=== PATIENT | female | born 1935 | race Caucasian/White ===

== ENCOUNTER 2019-02-08 17:24 | Inpatient (IN) | payer BC ==
[~2019-02-08] VITALS: Ht 157.5 cm; Wt 77.0 kg
[2019-02-08 18:23] LABS: Basophils # (auto) 0 uL; Basophils % (auto) 0.2 % (0.0-2.0); Eosinophils # (auto) 0 uL; Eosinophils % (auto) 0.3 % (0.0-7.0); Hematocrit 38.1 % (36.0-46.0); Hemoglobin 12.4 g/dL (12.2-16.2); Lymphocytes # (auto) 1.2 uL; Lymphocytes % (auto) 7.7 % (10.0-50.0); Mean Corpuscular Hemoglobin 27.6 pg (28.0-32.0); Mean Corpuscular Hgb Conc. 32.6 g/dL (32.0-36.0); Mean Corpuscular Volume 84.8 fL (80.0-100.0); Monocytes # (auto) 0.6 uL; Monocytes % (auto) 3.8 % (0.0-12.0); Neutrophils # (auto) 14.3 uL; Platelet Count (auto) 322 10^3/uL (140-450); Red Blood Cells 4.49 10^6/uL (4.0-5.20); White Blood Cell 16.2 10^3/uL (4.4-10.8)
[2019-02-08 18:43] LABS: Albumin 3.7 g/dL (3.4-5.0); Calcium 8.6 mg/dL (8.5-10.1)
[2019-02-08 18:48] LABS: BUN/Creatinine Ratio 23.5; Bilirubin, Total 0.4 mg/dL (0.2-1.0); Total Protein 7.7 g/dL (6.4-8.2)
[2019-02-08] MEDS ORDERED: SODIUM CHLORIDE 0.9% 1,000 ML IVB ONE (19:16)
[2019-02-08] MEDS ORDERED: cefTRIAXone 1GM/50ML D5W 50 ML IV ONE (19:30)
[2019-02-08] MEDS ORDERED: metroNIDAZOLE 500MG/100ML 100 ML IV ONE (19:30)
[2019-02-08 19:48] LABS: Magnesium 1.9 mg/dL (1.6-2.6)
[2019-02-08 20:01] LABS: INR 0.94 (0.9-1.15); Partial Thromboplastin Time 23.5 sec (23.64-32.05)
[2019-02-08 20:51] LABS: Lactic Acid w/Reflex 2.7 mmol/L (0.4-2.0)
[2019-02-08] MEDS ORDERED: MORPHINE SULF INJ 2 MG/ML SYRINGE 1ML IV ONE (21:00)
[2019-02-08] MEDS ORDERED: ONDANSETRON HCL 4 MG/2 ML VIAL IV ONE (21:00)
[2019-02-08] MEDS ORDERED: SODIUM CHLORIDE 0.9% 1,000 ML IV ONE (21:15)
[2019-02-08] MEDS ORDERED: BENZOCAINE (DENTAL) 20 % SPRAY 60ML MT ONE ×2 (21:39→21:45)
[2019-02-08] MEDS ORDERED: PROMETHAZINE HCL 25 MG/ML 1ML IV ONE (22:00)
[2019-02-08] MEDS ORDERED: PANTOPRAZOLE 40 MG/10 ML VIAL INJ IV ONE (22:45)
[2019-02-08] MEDS ORDERED: DEXTROSE (50%) 50ML SYRG IV PRN (22:45)
[2019-02-08] MEDS ORDERED: MORPHINE SULF INJ 2 MG/ML SYRINGE 1ML IV PRN ×2 (22:45)
[2019-02-08] MEDS ORDERED: NITROGLYCERIN 0.4 MG SL TAB SL PRN (22:45)
[2019-02-09] MEDS: SODIUM CHLORIDE 0.9% 1,000 ML IV SCH ×3 (00:11→18:45)
[2019-02-09] MEDS: ACCU-CHEK COMFORT CURVE STRIP VI SCH ×4 (00:11→18:00)
[2019-02-09 05:13] LABS: Basophils # (auto) 0 uL; Basophils % (auto) 0.1 % (0.0-2.0); Eosinophils # (auto) 0 uL; Hematocrit 34.7 % (36.0-46.0); Hemoglobin 11.4 g/dL (12.2-16.2); Lymphocytes # (auto) 1.1 uL; Lymphocytes % (auto) 6.2 % (10.0-50.0); Mean Corpuscular Hgb Conc. 32.9 g/dL (32.0-36.0); Mean Corpuscular Volume 84.9 fL (80.0-100.0); Monocytes # (auto) 0.8 uL; Monocytes % (auto) 4.2 % (0.0-12.0); Neutrophils # (auto) 16.6 uL; Neutrophils % (auto) 89.5 % (37.0-80.0); Platelet Count (auto) 266 10^3/uL (140-450); Red Blood Cells 4.09 10^6/uL (4.0-5.20); White Blood Cell 18.6 10^3/uL (4.4-10.8)
[2019-02-09 05:32] LABS: Calcium 7.9 mg/dL (8.5-10.1); Potassium 3.6 mmol/L (3.5-5.1)
[2019-02-09 05:34] LABS: BUN/Creatinine Ratio 24.2
[2019-02-09] MEDS ORDERED: metroNIDAZOLE 500MG/100ML 100 ML IV SCH (06:00)
[2019-02-09] MEDS: InsuLIN REG 1unit/0.01ml Soln (100units/ml) SC SCH ×4 (06:00→18:00)
[2019-02-09] MEDS: ONDANSETRON HCL 4 MG/2 ML VIAL IV PRN (08:53)
[2019-02-09] MEDS ORDERED: cefTRIAXone 1GM/50ML D5W 50 ML IV SCH (09:00)
[2019-02-09] MEDS ORDERED: HYDROmorphone HCL 2 MG/ML VL IV PRN ×2 (11:15→12:15)
[2019-02-09] MEDS: PANTOPRAZOLE 40 MG/10 ML VIAL INJ IV SCH (11:22)
[2019-02-09] MEDS ORDERED: MORPHINE SULF INJ 2 MG/ML SYRINGE 1ML IV PRN (11:45)
[2019-02-09] MEDS ORDERED: ACCU-CHEK COMFORT CURVE STRIP VI ONE (12:15)
[2019-02-09] MEDS ORDERED: ONDANSETRON HCL 4 MG/2 ML VIAL IV PRN (12:15)
[2019-02-09] MEDS ORDERED: NALOXONE HCL 0.4 MG/ML VIAL IV PRN (12:15)
[2019-02-09] MEDS ORDERED: ePHEDrine SULFATE 50 MG/ML AMP IV PRN (12:15)
[2019-02-09] MEDS ORDERED: LIDOCAINE 1% (LOCAL ANESTH.) PF 5ml SDV ONE (12:16)
[2019-02-09] MEDS ORDERED: SUCCINYLCHOLINE CHLORIDE 20 MG/ML 10ML VIAL IV ONE (12:16)
[2019-02-09] MEDS ORDERED: MIDAZOLAM HCL 1MG/1ML-2 ML VIAL ONE (12:19)
[2019-02-09] MEDS ORDERED: ROCURONIUM 10MG/ML 10ML VIAL IV ONE (12:20)
[2019-02-09] MEDS ORDERED: ETOMIDATE (2MG/ML) 20ML VIAL IV ONE (12:20)
[2019-02-09] MEDS ORDERED: fentaNYL CITRATE 100 MCG/2 ML VL ONE (12:53)
[2019-02-09] MEDS ORDERED: POVIDONE IODINE 5% TOPICAL CREAM TOP ONE (13:28)
[2019-02-09] MEDS ORDERED: GLYCOPYRROLATE 0.2 MG/ML 1ML VIAL ONE (13:37)
[2019-02-09] MEDS ORDERED: NEOSTIGMINE 1 MG/ML INJ (10mg/10ML VIAL) ONE (13:37)
[2019-02-09] MEDS: PIPERACILLIN-TAZOB 3.375GM 100 ML IV SCH ×2 (14:00→22:09)
[2019-02-09] MEDS: HYDROmorphone HCL 2 MG/ML VL IV PRN ×3 (14:18→16:23)
[2019-02-09] MEDS ORDERED: KETOROLAC TROMETH 30 MG/ML 1ML VIAL ONE (14:21)
[2019-02-09 19:30] VITALS: BP 127/60
--- NOTE | 2019-02-09 19:30 | NUR ---
received pt from pacu nurse poc reviewed
--- NOTE | 2019-02-09 19:40 | NUR ---
pt Alert times four, oriented to rm 231, connected to 3l n/c, resp even and unlabored, denies pain, ngt to right nare, connected to lcs, no drainage at this time, abd binder in place dressing dry and intact, no bs at this time, right and left dillon intact to suction, f/c patent, positioned with hob up, all questions and concerns addressed, scd's applied, will educate with Is, splinting abdomen when coughing and post op instructions.
--- NOTE | 2019-02-09 20:46 | NUR ---
pt called updated on room location and to bring meds in am , pt stated that she has a h/o mrsa a few years ago from a wound in her right leg, will send swab
--- NOTE | 2019-02-09 21:36 | NUR ---
positioned with hob up, resting with eyes closed
[2019-02-09] MEDS ORDERED: LOSA25TA38 PO (22:43)
[2019-02-09] MEDS ORDERED: AMLO5TAB15 PO (22:43)
[2019-02-09] MEDS ORDERED: GLIP5TAB12 PO (22:45)
[2019-02-09] MEDS ORDERED: ATOR10TA52 PO (22:45)
[2019-02-09] MEDS ORDERED: ASPI-404 PO (22:46)
[2019-02-09] MEDS ORDERED: ASCO500T11 PO (22:46)
[2019-02-09 22:55] LABS: Urine Bacteria FEW /hpf (None Seen); Urine Blood 2+ /uL (Negative); Urine Hyaline Cast MANY /lpf (0 - 2); Urine Mucus FEW (None Seen); Urine Specific Gravity 1.022 (1.001-1.035); Urine WBC 11 /hpf (0 - 5)
--- NOTE | 2019-02-09 23:05 | NUR ---
received call from lab pt has positive blood cultures gram neg rods, hospitalist paged
[2019-02-10] VITALS (7 sets, daily range): BP systolic 125–142; BP diastolic 47–79
--- NOTE | 2019-02-10 00:10 | NUR ---
hospitalist paged for orders, pts temp 101.0 ax, cooling measures initiated.
[2019-02-10] MEDS: ACCU-CHEK COMFORT CURVE STRIP VI SCH ×5 (00:38→23:32)
[2019-02-10] MEDS ORDERED: VANCOMYCIN PER PHARMACY 0 MG IV SCH (01:15)
[2019-02-10] MEDS ORDERED: ACETAMINOPHEN 650 MG RECT SUPP PR PRN (01:15)
--- NOTE | 2019-02-10 01:43 | NUR ---
rectal supp given for temp 101.2, cooling measures continue
[2019-02-10] MEDS ORDERED: VANCOMYCIN 1GM/250ML 250 ML IV SCH (02:00)
--- NOTE | 2019-02-10 02:00 | NUR ---
shukri started as ordered, pt is to transfer to icu
--- NOTE | 2019-02-10 02:10 | NUR ---
not able to give report nurse on break.
--- NOTE | 2019-02-10 02:53 | NUR ---
report given to icu nurse poc reviewed, discussed with pt that she will be transferred to icu, pt verbalized understanding, pts property, dentures, errings clothing transferred with pt
--- NOTE | 2019-02-10 03:12 | NUR ---
pts spouse not notified of pts change of room
[2019-02-10] MEDS: SODIUM CHLORIDE 0.9% 1,000 ML IV SCH ×2 (04:45→14:45)
[2019-02-10] MEDS: InsuLIN REG 1unit/0.01ml Soln (100units/ml) SC SCH ×5 (06:00→23:33)
[2019-02-10] MEDS: PIPERACILLIN-TAZOB 3.375GM 100 ML IV SCH ×3 (06:16→21:32)
[2019-02-10 07:11] LABS: Basophils # (auto) 0.1 uL; Basophils % (auto) 0.5 % (0.0-2.0); Eosinophils # (auto) 0.1 uL; Eosinophils % (auto) 0.6 % (0.0-7.0); Hematocrit 34.5 % (36.0-46.0); Hemoglobin 11.4 g/dL (12.2-16.2); Lymphocytes # (auto) 1.5 uL; Lymphocytes % (auto) 10.4 % (10.0-50.0); Mean Corpuscular Hemoglobin 28.3 pg (28.0-32.0); Mean Corpuscular Hgb Conc. 32.9 g/dL (32.0-36.0); Mean Corpuscular Volume 86.2 fL (80.0-100.0); Monocytes # (auto) 0.5 uL; Monocytes % (auto) 3.4 % (0.0-12.0); Neutrophils # (auto) 12.3 uL; Neutrophils % (auto) 85.1 % (37.0-80.0); Platelet Count (auto) 232 10^3/uL (140-450); Red Blood Cells 4.01 10^6/uL (4.0-5.20); Red Cell Distribution Width 14.6 % (11.8-14.3); White Blood Cell 14.4 10^3/uL (4.4-10.8)
[2019-02-10 07:27] LABS: Albumin 2.6 g/dL (3.4-5.0); Calcium 7.8 mg/dL (8.5-10.1); Potassium 3.4 mmol/L (3.5-5.1)
[2019-02-10 07:31] LABS: BUN/Creatinine Ratio 25.8; Bilirubin, Total 0.6 mg/dL (0.2-1.0); Total Protein 6.3 g/dL (6.4-8.2)
--- NOTE | 2019-02-10 09:09 | NUR ---
DR LI'S PA AT BEDSIDE DISCUSSED PLAN OF CARE WITH PATIENT AND PATIENTS DAUGHTER
--- NOTE | 2019-02-10 09:26 | NUR ---
SPOKE WITH DR LI'S PA RECEIVED ORDERS TO ALLOW PATIENT TO HAVE ICE CHIPS
[2019-02-10] MEDS: PANTOPRAZOLE 40 MG/10 ML VIAL INJ IV SCH (10:00)
--- NOTE | 2019-02-10 10:33 | NUR ---
DR EL AT BEDSIDE DISCUSSED PLAN OF CARE WITH PATIENT AND PATIENTS FAMILY (DAUGHTER AND ) NEW ORDERS RECEIVED
[2019-02-10] MEDS: POTASSIUM CHL 20MEQ/100ML 100 ML IV SCH ×2 (10:51→13:13)
--- NOTE | 2019-02-10 11:32 | NUR ---
BED ASSIGNMENT GIVEN, ROOM 205- REPORT GIVEN TO EDUARD PATIENT STABLE FOR TRANSFER
--- NOTE | 2019-02-10 11:50 | NUR ---
PATIENTS DAUGHTER AND GRANDDAUGHTER AT BEDSIDE UPDATED ON CURRENT STATUS AND PLAN OF CARE.
--- NOTE | 2019-02-10 12:06 | NUR ---
PATIENT TRANSFERRED TO FLOOR BED, CONNECTED TO PORTABLE TELE BOX AND OXYGEN. TRANSPORTED TO NEW ROOM WITH EVENT MARKETING REPRESENTATIVE AND TECH, WITH ALL BELONGINGS. PATIENTS VITALS STABLE AT TIME OF TRANSFER
--- NOTE | 2019-02-10 12:50 | NUR ---
Patient DENNISE status Received patient from ICU, patient alert and oriented x4 on 2L NC. No c/o pain. No s/s of distress/SOB noted/stated. Abdominal incisions are clean dry and intact, with the exception of the right dressing showing dried up blood. TIESHA drains intact and draining serosanguineous fluid. Abdominal binder in place. Patient has an NG tube to R.nare. NG Tube set at LIS. A total of 350ml of greenish fluid in canister. Bed at lowest locked position and call light within reach.Family at bedside and call light within reach.
--- NOTE | 2019-02-10 14:00 | NUR ---
Assessment Pt is an 83 yr old female, alert and oriented. Earlier in the day, pt was in ICU but she had recently been downgraded and is in Rm 205. Prior to admit, pt lived with partner, Kurt, who is here emergency contact at [phone]. Prior to admit, pt was ambulatory, and independent with ADL's, cooking and cleaning. . Pt does not own any DME. Pt's Primary DrOlga is at [facility]. Pt stated that she has an advanced directive but not here at the hospital. SW encouraged pt to bring a copy in, when able. Pt stated that her partner Kurt will be able to transport home upon d/c. Pt stated that she will feel safe to go home upon d/c. No needs or concerns expressed from pt at this time. Addendum: 02/10/19 at 1406 by MARK SOTO SS Amended: Links added.
--- NOTE | 2019-02-10 18:32 | NUR ---
CLOSING SHIFT NOTE Patient is AOx4, laying in bed with no SOB, pain or distress noted. Patients bed is in lowest position and locked. Patient is on 2L of O2 via NC, she is on LOW INTERMITTENT SUCTION, drained total output of 650ml of green gastric content. Both TIESHA drains are intact and total out put of 75ml of serous sanguineous fluid, secured with abdominal binder. Will endorse care to maintenance supervisor 2nd shift nurse. Signed: 02/10/19 at 1840 by SHARRON CALDERON <Co-Signature Required> Co-Signed: 02/10/19 at 0 by Suki Loyola RN
--- NOTE | 2019-02-10 19:00 | NUR ---
Opening Shift Note Assumed care of patient, awake and alert. No S/S of distress/SOB or pain. Instructed on POC and to call for assist PRN, will continue to monitor for changes Q1hr and PRN.
[2019-02-11] MEDS: SODIUM CHLORIDE 0.9% 1,000 ML IV SCH ×3 (00:45→20:32)
[2019-02-11] MEDS ORDERED: VANCOMYCIN 1GM/250ML 250 ML IV SCH (02:00)
[2019-02-11 05:01] VITALS: BP 151/74
[2019-02-11 05:10] LABS: Basophils # (auto) 0.1 uL; Basophils % (auto) 0.4 % (0.0-2.0); Eosinophils # (auto) 0.2 uL; Eosinophils % (auto) 1.4 % (0.0-7.0); Hematocrit 35.7 % (36.0-46.0); Hemoglobin 11.8 g/dL (12.2-16.2); Lymphocytes # (auto) 1.3 uL; Lymphocytes % (auto) 8.9 % (10.0-50.0); Mean Corpuscular Hgb Conc. 33.1 g/dL (32.0-36.0); Mean Corpuscular Volume 84.8 fL (80.0-100.0); Monocytes # (auto) 0.4 uL; Monocytes % (auto) 3.1 % (0.0-12.0); Neutrophils # (auto) 12.5 uL; Neutrophils % (auto) 86.2 % (37.0-80.0); Platelet Count (auto) 249 10^3/uL (140-450); Red Blood Cells 4.21 10^6/uL (4.0-5.20); Red Cell Distribution Width 14.4 % (11.8-14.3); White Blood Cell 14.5 10^3/uL (4.4-10.8)
[2019-02-11 05:28] LABS: Calcium 8.6 mg/dL (8.5-10.1); Potassium 3.5 mmol/L (3.5-5.1)
[2019-02-11 05:34] LABS: Albumin 2.5 g/dL (3.4-5.0); Bilirubin, Total 0.6 mg/dL (0.2-1.0); Magnesium 2.4 mg/dL (1.6-2.6); Phosphorus 1.7 mg/dL (2.5-4.90); Total Protein 6.6 g/dL (6.4-8.2)
[2019-02-11] MEDS: ACCU-CHEK COMFORT CURVE STRIP VI SCH ×4 (05:34→23:51)
[2019-02-11] MEDS: InsuLIN REG 1unit/0.01ml Soln (100units/ml) SC SCH ×4 (05:34→23:51)
[2019-02-11] MEDS: PIPERACILLIN-TAZOB 3.375GM 100 ML IV SCH ×3 (05:34→21:31)
[2019-02-11 05:42] LABS: BUN/Creatinine Ratio 28.2
--- NOTE | 2019-02-11 06:20 | NUR ---
TIESHA drains drained of 200mL of fluid.
--- NOTE | 2019-02-11 06:21 | NUR ---
NG tube connected to suction noted to have 450mL of gastric fluid in container during warehouse worker 2nd shift.
--- NOTE | 2019-02-11 08:00 | NUR ---
Opening Shift Note Assumed care of patient, awake and alert. No S/S of SOB or pain stated. Patient is complaining of feeling hungry. Bed at lowest locked position and call light within reach. Instructed on POC and to call for assist PRN, will continue to monitor for changes Q1hr and PRN.
[2019-02-11 08:01] VITALS: BP 145/71
--- NOTE | 2019-02-11 08:15 | NUR ---
Patient c/o Nausea and feeling hungry. WPatient is demanding food and is requesting to talk to Dr. Hill. Will medicate as prescribed by .
[2019-02-11] MEDS: ONDANSETRON HCL 4 MG/2 ML VIAL IV PRN (08:28)
--- NOTE | 2019-02-11 09:02 | NUR ---
IV removal Patient's IV on Right AC is leaking. No c/o pain stated, no swelling or no redness noted. IV DC'd with clean sterile technique, catheter fully intact. Pressure dressing applied to site. Patient tolerated well.
--- NOTE | 2019-02-11 09:03 | NUR ---
Left a message for Physical therapy, patient needs at walker to assist her with ambulation. Awaiting call back.
--- NOTE | 2019-02-11 09:11 | NUR ---
Left message with Dr. Anum Hoffman, Awaiting call back.
[2019-02-11] MEDS ORDERED: POTASSIUM PHOSPHATE 22 MEQ in SODIUM CHL 0.9% 100 ML IV ONE (09:30)
[2019-02-11] MEDS: PANTOPRAZOLE 40 MG/10 ML VIAL INJ IV SCH (10:44)
[2019-02-11] MEDS ORDERED: LOSA-39 PO (10:51)
[2019-02-11] MEDS ORDERED: ATO40T PO (10:52)
--- NOTE | 2019-02-11 11:00 | NUR ---
Patient is ambulating with Eyad ALVAREZ
--- NOTE | 2019-02-11 11:58 | NUR ---
NUTRITION ASSESSMENT NOTES Please refer to link notes of nutrition screen form filed under the intervention section of the plan of care for further details. Est. Needs: 1550 kcal to 1950 kcal (20-25 kcal/kgBW), 63 gms to 77 gms pro (0.8-1.0 gms/kgBW). Will continue to monitor pertinent labs and reassess nutrient need prn Thank you. Addendum: 02/11/19 at [address] Amended: Links added.
[2019-02-11 12:10] VITALS: BP 146/60
--- NOTE | 2019-02-11 14:20 | NUR ---
Patient had a well formed bowel movement.
[2019-02-11 16:28] VITALS: BP 152/67
--- NOTE | 2019-02-11 16:31 | NUR ---
ELEVATED BLOOD PRESSURE LEFT MESSAGE FOR DR. EL, PATIENTS BP IS 152/67 HR 77
--- NOTE | 2019-02-11 18:43 | NUR ---
Collected 150mls of serosanguineous fluid from r/l TIESHA drains. Patient tolerated well.
--- NOTE | 2019-02-11 18:46 | NUR ---
NG Tube Collected a total of 250mls of greenish fluid from NG Tube during shift.
[2019-02-11] MEDS: hydrALAZINE HCL 20 MG/ML VL IV PRN (20:48)
[2019-02-11 22:00] VITALS: BP 165/77
[2019-02-12] MEDS: hydrALAZINE HCL 20 MG/ML VL IV PRN (04:05)
[2019-02-12 05:00] VITALS: BP 160/67
[2019-02-12 05:25] LABS: Basophils # (auto) 0.1 uL; Basophils % (auto) 0.4 % (0.0-2.0); Eosinophils # (auto) 0.2 uL; Eosinophils % (auto) 1.7 % (0.0-7.0); Hematocrit 37.3 % (36.0-46.0); Hemoglobin 12.2 g/dL (12.2-16.2); Lymphocytes # (auto) 1.2 uL; Lymphocytes % (auto) 8.9 % (10.0-50.0); Mean Corpuscular Hemoglobin 27.8 pg (28.0-32.0); Mean Corpuscular Hgb Conc. 32.7 g/dL (32.0-36.0); Mean Corpuscular Volume 85.2 fL (80.0-100.0); Monocytes # (auto) 0.6 uL; Monocytes % (auto) 4.5 % (0.0-12.0); Neutrophils # (auto) 11.7 uL; Neutrophils % (auto) 84.5 % (37.0-80.0); Platelet Count (auto) 291 10^3/uL (140-450); Red Blood Cells 4.38 10^6/uL (4.0-5.20); White Blood Cell 13.9 10^3/uL (4.4-10.8)
[2019-02-12] MEDS: ACCU-CHEK COMFORT CURVE STRIP VI SCH ×3 (05:32→16:58)
[2019-02-12] MEDS: PIPERACILLIN-TAZOB 3.375GM 100 ML IV SCH ×3 (05:32→21:34)
[2019-02-12] MEDS: InsuLIN REG 1unit/0.01ml Soln (100units/ml) SC SCH ×3 (05:33→16:58)
[2019-02-12 05:48] LABS: BUN/Creatinine Ratio 29.6; Calcium 8.7 mg/dL (8.5-10.1); Magnesium 2.3 mg/dL (1.6-2.6); Potassium 3.8 mmol/L (3.5-5.1)
[2019-02-12] MEDS: ONDANSETRON HCL 4 MG/2 ML VIAL IV PRN (06:15)
[2019-02-12] MEDS: SODIUM CHLORIDE 0.9% 1,000 ML IV SCH (06:15)
--- NOTE | 2019-02-12 06:16 | NUR ---
NG tube connected to suction noted to have 400mL of gastric fluid in container during administrative assistant receptionist.
--- NOTE | 2019-02-12 06:16 | NUR ---
TIESHA drains drained of 150mL of fluid.
--- NOTE | 2019-02-12 07:45 | NUR ---
Opening Note Received report from lieutenant shift supervisor RN. Patient is awake, alert and oriented x4. Patient is on 2L NC, denies shortness of breath. Patient has an NG Tube on low intermittent suction, draining dark green fluid. Patient has two TIESHA drains. Patient has abdominal incision, open to air. Patient denies pain at this time. Reviewed plan of care with patient, patient verbalized understanding. Bed in low and locked position, call light within reach. Will continue to monitor Q1 hour and PRN.
[2019-02-12 08:10] VITALS: BP 141/69
--- NOTE | 2019-02-12 08:52 | NUR ---
Dr. Orozco at bedside Updating patient on plan of care. New orders received. Instructed to clamp NG tube and monitor for 6 hours, if no nausea and vomiting ok to remove NG tube, remove Navarro catheter. Will implement new orders. Will continue to monitor Q1 hour and PRN.
--- NOTE | 2019-02-12 09:15 | NUR ---
NG Tube clamped Patient instructed to call for any complaints of nausea or vomiting. Will continue to monitor Q1 hour and PRN.
[2019-02-12] MEDS: PANTOPRAZOLE 40 MG/10 ML VIAL INJ IV SCH (10:00)
--- NOTE | 2019-02-12 10:06 | NUR ---
PT at bedside
[2019-02-12 12:01] VITALS: BP 135/65
[2019-02-12] MEDS: SOD CHL 0.45% 1,000 ML IV SCH ×2 (12:17→19:28)
--- NOTE | 2019-02-12 15:00 | NUR ---
Navarro catheter Removed Catheter removed per MD orders. Patient instructed to call when she needs to void. Will continue to monitor Q1 hour and PRN.
--- NOTE | 2019-02-12 15:30 | NUR ---
NG Tube removed Patient tolerated NG tube being clamped for 6 hours. Removed NG Tube, patient tolerated well. Diet advanced to clear liquids. Will continue to monitor Q1 hour and PRN.
[2019-02-12 16:26] VITALS: BP 147/70
--- NOTE | 2019-02-12 16:50 | NUR ---
Bedside Commode Patient assisted to bedside commode. Patient voided, no bowel movement. Patient denies pain or discomfort at this time. Patient assisted back to bed. Will continue to monitor Q1 hour and PRN.
--- NOTE | 2019-02-12 18:34 | NUR ---
Diet Patient tolerated clear liquid diet. No complaints of nausea or vomiting. Will continue to monitor Q1 hour and PRN.
--- NOTE | 2019-02-12 18:51 | NUR ---
150mls emptied from TIESHA drains sanguinous fluid emptied
--- NOTE | 2019-02-12 19:30 | NUR ---
OPENING NOTE REPORT RECEIVED FROM DAY SHIFT RN. PATIENT IS A/OX4 RESTING IN BED. PHYSICAL ASSESSMENT DONE-SEE INTERVENTIONS. PATIENT HAS JONATHAN TO MEDIAL ABDOMEN, INTACT AND WELL APPROXIMATED. TIESHA DRAINS TO LEFT AND RIGHT LOWER ABDOMEN. PATIENT ABLE TO TURN/REPOSITION SELF. POC FOR TONIGHT DISCUSSED, ALL QUESTIONS ANSWERED. WILL MONITOR Q1H PRN THROUGHOUT SHIFT. CALL LIGHT WITHIN REACH. FALL PRECAUTIONS IN PLACE.
[2019-02-12 21:11] VITALS: BP 140/67
[2019-02-13 04:28] VITALS: BP 139/61
[2019-02-13] MEDS: SOD CHL 0.45% 1,000 ML IV SCH ×2 (05:15→15:18)
[2019-02-13 05:23] LABS: Basophils # (auto) 0 uL; Basophils % (auto) 0.3 % (0.0-2.0); Eosinophils # (auto) 0.4 uL; Eosinophils % (auto) 3.3 % (0.0-7.0); Hematocrit 32.5 % (36.0-46.0); Hemoglobin 10.9 g/dL (12.2-16.2); Lymphocytes # (auto) 1.7 uL; Lymphocytes % (auto) 15.5 % (10.0-50.0); Mean Corpuscular Hemoglobin 28.6 pg (28.0-32.0); Mean Corpuscular Hgb Conc. 33.6 g/dL (32.0-36.0); Mean Corpuscular Volume 85.1 fL (80.0-100.0); Monocytes % (auto) 9.3 % (0.0-12.0); Neutrophils # (auto) 7.7 uL; Neutrophils % (auto) 71.6 % (37.0-80.0); Platelet Count (auto) 276 10^3/uL (140-450); Red Blood Cells 3.82 10^6/uL (4.0-5.20); White Blood Cell 10.7 10^3/uL (4.4-10.8)
[2019-02-13 05:27] LABS: BUN/Creatinine Ratio 29.3; Calcium 8.2 mg/dL (8.5-10.1); Potassium 3.7 mmol/L (3.5-5.1)
[2019-02-13] MEDS: ACCU-CHEK COMFORT CURVE STRIP VI SCH ×4 (05:43→17:52)
[2019-02-13] MEDS: PIPERACILLIN-TAZOB 3.375GM 100 ML IV SCH ×3 (05:43→22:59)
[2019-02-13] MEDS: InsuLIN REG 1unit/0.01ml Soln (100units/ml) SC SCH ×4 (05:46→17:52)
--- NOTE | 2019-02-13 06:42 | NUR ---
TIESHA OUTPUTS LEFT TIESHA:50ML RIGHT TIESHA:50ML TOTAL OUTPUT FROM BOTH TIESHA DRAINS FOR SHIFT: 100ML OF SEROSANGUINEOUS FLUID
--- NOTE | 2019-02-13 07:04 | NUR ---
CLOSING REPORT ENDORSED TO DAYSHIFT RN PATIENT IS SLEEPING. NO S/S OF DISTRESS NOTED. FALL PRECAUTIONS IN PLACE, CALL LIGHT WITHIN REACH
--- NOTE | 2019-02-13 07:40 | NUR ---
Opening Note Received report from shift coordinator RN. Patient is awake, alert and oriented x4. Patient is on 2L NC, denies shortness of breath. Tube on low Patient has two TIESHA drains. Patient has abdominal incision, open to air. Patient denies pain at this time. Reviewed plan of care with patient, patient verbalized understanding. Bed in low and locked position, call light within reach. Will continue to monitor Q1 hour and PRN.
--- NOTE | 2019-02-13 08:40 | NUR ---
Bowel Movement Patient had bowel movement in beside commode, dark colored, loose stool. Patient cleaned and assisted back to bed. Will continue to monitor Q1 hour and PRN.
--- NOTE | 2019-02-13 08:58 | NUR ---
Dr. Hoffman at bedside Updating patient on plan of care. Patient is to stay on clear liquids today. Will continue to monitor Q1 hour and PRN.
[2019-02-13 09:00] VITALS: BP 140/68
--- NOTE | 2019-02-13 09:05 | NUR ---
Dr. Orozco at bedside Updating patient on plan of care. Patient is a possible discharge tomorrow if cleared by Dr. Hoffman. New prescriptions placed in patients chart. Will continue to monitor Q1 hour and PRN.
--- NOTE | 2019-02-13 09:30 | NUR ---
PT at bedside Patient ambulated in hallway with PT. Patient assisted to chair and instructed to call when ready to get back into bed. Will continue to monitor Q1 hour and PRN.
[2019-02-13] MEDS: PANTOPRAZOLE 40 MG/10 ML VIAL INJ IV SCH (10:10)
[2019-02-13 12:52] VITALS: BP 166/66
--- NOTE | 2019-02-13 14:32 | NUR ---
Nutrition Follow-up Notes Wt.: 76.4 kg as of yesterday Pt's asleep, no immediate family member at bedside during rounds this morning. Pt's s/p explor lap appy (02/09/19), no signs of distress noted earlier, currently on Clear Liquid diet with good PO intake aeb 80% ave. consumed meals (x3) since yesterday. Est. Needs: 1550 kcal to 1950 kcal (20-25 kcal/kgBW), 63 gms to 77 gms pro (0.8-1.0 gms/kgBW). Will continue to monitor pertinent labs and reassess nutrient need prn Labs: Gluc 123 H, Cl 110 H, BUN 22 H; Alb 2.5 L, HbA1c 6.6 H Skin: Mono scale 20, low risk, pt's abdomen incision dry and intact per vamp throater. GI: Pt had 2x BM 02/11/19 per vamp throater. PES: Increased nutrient needs r/t altered GI functions aeb Bowel perforation,Acute abdominal pain,Diverticulitis of intestine,Sepsis, s/p surgery, NPO. Altered nutrition related lab values r/t current/chronic medical condition aeb hyperglycemia, hyperchloremia, elev. BUN, HbA1c,low Phos and mod hypoalbuminemia Obesity r/t food intake more than body requirement aeb 157% IBW, BMI 31.7 kg/m2 and increased body adiposity Will continue to monitor PO intake, skin status, pertinent labs and weight trend. F/u in 2 to 3 days. Rec.: 1.) Advance gradually to oral diet (Soft Consistent Standard Carb: 60 gms/meal diet) when medically appropriate. 2.) If Albumin continues trending down, consider Prostat 1 pkt BID. 3.) Refer to CDE/RD for further nutrition educ. and weight monitoring upon discharge. 4.) Continue current plan of care.
--- NOTE | 2019-02-13 18:45 | NUR ---
IV insertion 22g IV inserted to left wrist. IV secured. Patient tolerated well. IV removed from right hand. Pressure dressing applied. Will continue to monitor Q1 hour and PRN.
--- NOTE | 2019-02-13 19:28 | NUR ---
Closing Note Report given to slot floor person RN. No signs or symptoms of distress noted at this time.
[2019-02-13 22:00] VITALS: BP 163/73
[2019-02-14] MEDS: SOD CHL 0.45% 1,000 ML IV SCH ×2 (01:15→11:15)
[2019-02-14 05:40] VITALS: BP 151/57
[2019-02-14] MEDS: InsuLIN REG 1unit/0.01ml Soln (100units/ml) SC SCH ×3 (06:00→12:00)
[2019-02-14] MEDS: PIPERACILLIN-TAZOB 3.375GM 100 ML IV SCH ×2 (06:13→14:00)
[2019-02-14] MEDS: ACCU-CHEK COMFORT CURVE STRIP VI SCH ×3 (06:15→12:00)
[2019-02-14 06:44] VITALS: BP 161/77
[2019-02-14 09:00] VITALS: BP 155/80
[2019-02-14] MEDS: PANTOPRAZOLE 40 MG/10 ML VIAL INJ IV SCH (10:00)
--- NOTE | 2019-02-14 10:57 | NUR ---
DR. HERRERA AT BEDSIDE Came in to see patient. Gave clearance to discharge patient.
[2019-02-14 13:00] VITALS: BP 156/77
== END 2019-02-14 17:00 | disposition home or self-care (01) | DRG 853 ==
LOC: ER 17:24 → EDBD 17:24 → TELE 17:25 → TELE-EAST 02-09 17:30 → ICU WEST 02-10 02:59 → TELE-CENTR 02-10 12:05
PROVIDERS: ADMIT Internal Medicine; ATTEND Internal Medicine
PROC: 0DTJ0ZZ Resection of Appendix, Open Approach (ICD-10-PCS; principal; 2019-02-09 12:28)
PROC: 3E1M38Z Irrigation of Peritoneal Cavity using Irrigating Substance, Percutaneous Approach (ICD-10-PCS; 2019-02-10)
DX: A41.9 Sepsis, unspecified organism (principal); N17.0 Acute kidney failure with tubular necrosis; K35.32 Acute appendicitis with perforation, localized peritonitis, and gangrene, without abscess; K57.20 Diverticulitis of large intestine with perforation and abscess without bleeding; I10 Essential (primary) hypertension; E11.9 Type 2 diabetes mellitus without complications; B96.89 Other specified bacterial agents as the cause of diseases classified elsewhere; E87.6 Hypokalemia; E83.39 Other disorders of phosphorus metabolism; E78.5 Hyperlipidemia, unspecified
CPT/HCPCS: 36415; 71045; 74176; 80048; 80053; 80202; 81001; 82150; 82962; 83036; 83605; 83690; 83735; 84100; 85025; 85610; 85730; 86850; 86900; 86901; 87040; 87070; 87075; 87077; 87081; 87186; 87205; 93306; 96365; 96367; 96375; 97116; 97163; 97530; 99291; C9113; G0378; J0330; J0696; J1815; J1885; J2250; J2405; J2543; J3480; J3490

== ENCOUNTER 2020-10-09 12:38 | Inpatient (IN) | payer BC ==
[~2020-10-09] VITALS: Ht 157.5 cm; Wt 68.8 kg
[~2020-10-09 12:38] MED LIST: AMLO-489 PO; ASCO500T11 PO; ASPI-543 PO; ATO40T PO; GLIP5TAB12 PO; LOSA-39 PO
[2020-10-09] MEDS ORDERED: FUROSEMIDE 40 MG/4 ML VIAL IV ONE (13:00)
[2020-10-09 14:39] LABS: Basophils # (auto) 0 10 ^3/uL (0-0.2); Basophils % (auto) 0.5 % (0.0-2.0); Eosinophils # (auto) 0.1 10 ^3/uL (0-0.8); Eosinophils % (auto) 0.8 % (0.0-7.0); Hematocrit 41.6 % (36.0-46.0); Hemoglobin 13.7 g/dL (12.2-16.2); Lymphocytes # (auto) 1.7 10 ^3/uL (0.4-5.4); Lymphocytes % (auto) 19.5 % (10.0-50.0); Mean Corpuscular Volume 81.8 fL (80.0-100.0); Monocytes # (auto) 0.8 10 ^3/uL (0-1.3); Monocytes % (auto) 8.9 % (0.0-12.0); Neutrophils # (auto) 6.2 10 ^3/uL (1.6-8.6); Neutrophils % (auto) 70.3 % (37.0-80.0); Nucleated Red Blood Cells % 0.1 %; Platelet Count (auto) 239 10^3/uL (140-450); Red Blood Cells 5.09 10^6/uL (4.0-5.20); Red Cell Distribution Width 15.7 % (11.8-14.3); White Blood Cell 8.8 10^3/uL (4.4-10.8)
[2020-10-09 14:55] LABS: Albumin 2.9 g/dL (3.4-5.0); Calcium 8.8 mg/dL (8.5-10.1); Potassium 4.3 mmol/L (3.5-5.1)
[2020-10-09 15:01] LABS: Bilirubin, Total 0.8 mg/dL (0.2-1.0); Total Protein 5.9 g/dL (6.4-8.2)
[2020-10-09] MEDS ORDERED: cefTRIAXone 1GM/50ML D5W 50 ML IV ONE (16:00)
[2020-10-09] MEDS ORDERED: ENOXAPARIN SOD 80 MG/0.8ML SYRINGE SC ONE (17:00)
[2020-10-09] MEDS ORDERED: MORPHINE SULF INJ 2 MG/ML SYRINGE 1ML IV PRN ×2 (17:15)
[2020-10-09] MEDS ORDERED: ONDANSETRON HCL 4 MG/2 ML VIAL IV PRN (17:15)
[2020-10-09] MEDS ORDERED: NITROGLYCERIN 0.4 MG SL TAB SL PRN (17:15)
[2020-10-09] MEDS: FUROSEMIDE 40 MG/4 ML VIAL IV SCH (22:00)
[2020-10-09 22:31] VITALS: BP 132/67
[2020-10-09] MEDS: POTASSIUM CHL 20 Meq TABLET PO SCH (22:31)
[2020-10-10] MEDS: ACETAMINOPHEN 500 MG TAB PO PRN ×2 (00:17→23:45)
[2020-10-10 02:46] LABS: Urine Amorphous Crystal FEW /hpf (None Seen); Urine Bacteria FEW /hpf (None Seen); Urine Blood Negative /uL (Negative); Urine Hyaline Cast MOD /lpf (0 - 2); Urine Mucus FEW (None Seen); Urine Specific Gravity 1.008 (1.001-1.035); Urine WBC 5 /hpf (0 - 5)
[2020-10-10 05:10] VITALS: BP 130/70
[2020-10-10] MEDS: FUROSEMIDE 40 MG/4 ML VIAL IV SCH ×2 (05:17→18:10)
[2020-10-10 07:34] LABS: BUN/Creatinine Ratio 25.7; Calcium 8.9 mg/dL (8.5-10.1)
[2020-10-10 09:00] VITALS: BP 143/77
[2020-10-10] MEDS: ASPirin 81 mg TAB PO SCH (09:33)
[2020-10-10] MEDS: POTASSIUM CHL 20 Meq TABLET PO SCH ×2 (09:33→22:11)
[2020-10-10 12:00] VITALS: BP 115/72
[2020-10-10 13:00] VITALS: BP 115/72
[2020-10-10 17:00] VITALS: BP 109/67
[2020-10-10 22:00] VITALS: BP 112/69
[2020-10-11 05:00] VITALS: BP 115/68
[2020-10-11] MEDS: FUROSEMIDE 40 MG/4 ML VIAL IV SCH (06:19)
[2020-10-11 06:35] LABS: Potassium 4.4 mmol/L (3.5-5.1)
[2020-10-11 06:42] LABS: BUN/Creatinine Ratio 26.2; Calcium 8.2 mg/dL (8.5-10.1)
[2020-10-11 09:00] VITALS: BP 132/55
[2020-10-11] MEDS: ASPirin 81 mg TAB PO SCH (09:56)
[2020-10-11] MEDS: POTASSIUM CHL 20 Meq TABLET PO SCH (09:57)
[2020-10-11] MEDS ORDERED: LACTULOSE 20Gm/30ML SOLN PO ONE (10:30)
[2020-10-11] MEDS ORDERED: CIPR500T4 PO ×2 (11:25→11:48)
[2020-10-11] MEDS ORDERED: POTA10TA51 PO ×2 (11:25→11:48)
[2020-10-11] MEDS ORDERED: FURO40TA4 PO ×2 (11:25→11:48)
[2020-10-11 12:14] VITALS: BP 123/62
[2020-10-11 15:33] VITALS: BP 115/68
== END 2020-10-11 16:10 | disposition home or self-care (01) | DRG 291 ==
LOC: ER 12:38 → TELE 17:15 → TELE-EAST 21:49
PROVIDERS: ADMIT Hospitalist; ATTEND Hospitalist
DX: I11.0 Hypertensive heart disease with heart failure (principal); J18.9 Pneumonia, unspecified organism; N39.0 Urinary tract infection, site not specified; I50.43 Acute on chronic combined systolic (congestive) and diastolic (congestive) heart failure; Z20.822 Contact with and (suspected) exposure to COVID-19; E11.9 Type 2 diabetes mellitus without complications; E78.00 Pure hypercholesterolemia, unspecified; E78.5 Hyperlipidemia, unspecified; I35.0 Nonrheumatic aortic (valve) stenosis; I70.0 Atherosclerosis of aorta; Z82.49 Family history of ischemic heart disease and other diseases of the circulatory system; Z79.899 Other long term (current) drug therapy; Z79.891 Long term (current) use of opiate analgesic; Z79.01 Long term (current) use of anticoagulants; Z90.49 Acquired absence of other specified parts of digestive tract; Z88.5 Allergy status to narcotic agent; Z79.82 Long term (current) use of aspirin
CPT/HCPCS: 36415; 71045; 80048; 80053; 81001; 83605; 83880; 84484; 85025; 87040; 87426; 93005; 93306; 93970; 96365; 96375; G0378; J0696

== ENCOUNTER 2020-11-15 18:32 | Inpatient (IN) | payer BC ==
[~2020-11-15] VITALS: Ht 157.5 cm; Wt 66.7 kg
[~2020-11-15 18:32] MED LIST changes: -AMLO-489 PO; +CIPR500T4 PO; +FURO40TA4 PO; -LOSA-39 PO; +POTA10TA51 PO
[2020-11-15 19:24] LABS: Eosinophils # (auto) 0 10 ^3/uL (0-0.8)
[2020-11-15 19:25] LABS: Basophils # (auto) 0.1 10 ^3/uL (0-0.2); Basophils % (auto) 0.6 % (0.0-2.0); Eosinophils % (auto) 0.1 % (0.0-7.0); Hematocrit 38.3 % (36.0-46.0); Hemoglobin 12.4 g/dL (12.2-16.2); Lymphocytes # (auto) 1.7 10 ^3/uL (0.4-5.4); Lymphocytes % (auto) 16.6 % (10.0-50.0); Mean Corpuscular Hemoglobin 25.3 pg (28.0-32.0); Mean Corpuscular Hgb Conc. 32.5 g/dL (32.0-36.0); Monocytes # (auto) 0.7 10 ^3/uL (0-1.3); Monocytes % (auto) 7.4 % (0.0-12.0); Neutrophils # (auto) 7.6 10 ^3/uL (1.6-8.6); Neutrophils % (auto) 75.3 % (37.0-80.0); Red Blood Cells 4.91 10^6/uL (4.0-5.20); Red Cell Distribution Width 15.8 % (11.8-14.3); White Blood Cell 10.1 10^3/uL (4.4-10.8)
[2020-11-15 19:54] LABS: Albumin 2.9 g/dL (3.4-5.0); Calcium 8.9 mg/dL (8.5-10.1); Potassium 4.5 mmol/L (3.5-5.1)
[2020-11-15 19:57] LABS: Lactic Acid w/Reflex 2.2 mmol/L (0.4-2.0)
[2020-11-15 19:59] LABS: BUN/Creatinine Ratio 34.4; Bilirubin, Total 0.9 mg/dL (0.2-1.0); Total Protein 6.8 g/dL (6.4-8.2)
[2020-11-15] MEDS ORDERED: FUROSEMIDE 40 MG/4 ML VIAL IV ONE (20:30)
[2020-11-15] MEDS ORDERED: AZITHROMYCIN 500MG/ 250ML 250 ML IV ONE (21:30)
[2020-11-15] MEDS ORDERED: NITROGLYCERIN 0.4 MG SL TAB SL PRN (21:30)
[2020-11-15] MEDS ORDERED: ACETAMINOPHEN 325 MG TAB PO PRN (21:30)
[2020-11-15] MEDS ORDERED: MORPHINE SULF INJ 2 MG/ML SYRINGE 1ML IV PRN (21:30)
[2020-11-15] MEDS ORDERED: DEXTROSE (50%) 50ML SYRG IV PRN (21:30)
[2020-11-15] MEDS ORDERED: ONDANSETRON HCL 4 MG/2 ML VIAL IV PRN (21:30)
[2020-11-15] MEDS ORDERED: ALBUTEROL SULF 2.5 MG/0.5ML(0.5%) NEB SOLN NEB PRN (21:30)
[2020-11-15] MEDS: ASCORBIC ACID 500 MG TAB PO SCH (22:27)
[2020-11-15] MEDS: ACCU-CHEK COMFORT CURVE STRIP VI SCH (22:27)
[2020-11-15] MEDS: ATORVASTATIN 20 MG TAB PO SCH (22:27)
[2020-11-15] MEDS: InsuLIN REG 1unit/0.01ml Soln (100units/ml) SC SCH (22:28)
[2020-11-16] VITALS (8 sets, daily range): BP systolic 101–127; BP diastolic 54–68
[2020-11-16] MEDS: TEMAZEPAM 15 MG CAP PO PRN ×2 (00:36→22:29)
[2020-11-16] MEDS: FUROSEMIDE 20 MG/2 ML VIAL IV SCH ×2 (05:08→17:46)
[2020-11-16 05:37] LABS: Basophils # (auto) 0.1 10 ^3/uL (0-0.2); Lymphocytes # (auto) 2.5 10 ^3/uL (0.4-5.4); Monocytes # (auto) 0.8 10 ^3/uL (0-1.3); Nucleated Red Blood Cells % 0.1 %; White Blood Cell 8.9 10^3/uL (4.4-10.8)
[2020-11-16 05:39] LABS: Basophils % (auto) 0.9 % (0.0-2.0); Eosinophils # (auto) 0.2 10 ^3/uL (0-0.8); Eosinophils % (auto) 1.8 % (0.0-7.0); Hematocrit 35.4 % (36.0-46.0); Hemoglobin 11.8 g/dL (12.2-16.2); Lymphocytes % (auto) 28.6 % (10.0-50.0); Mean Corpuscular Hemoglobin 25.6 pg (28.0-32.0); Mean Corpuscular Hgb Conc. 33.5 g/dL (32.0-36.0); Mean Corpuscular Volume 76.5 fL (80.0-100.0); Monocytes % (auto) 9.4 % (0.0-12.0); Neutrophils # (auto) 5.3 10 ^3/uL (1.6-8.6); Neutrophils % (auto) 59.3 % (37.0-80.0); Red Blood Cells 4.62 10^6/uL (4.0-5.20); Red Cell Distribution Width 16.1 % (11.8-14.3)
[2020-11-16 06:16] LABS: Albumin 2.7 g/dL (3.4-5.0); Calcium 8.7 mg/dL (8.5-10.1); Potassium 3.6 mmol/L (3.5-5.1)
[2020-11-16] MEDS: ACCU-CHEK COMFORT CURVE STRIP VI SCH ×4 (06:17→21:02)
[2020-11-16] MEDS: InsuLIN REG 1unit/0.01ml Soln (100units/ml) SC SCH ×4 (06:17→21:08)
[2020-11-16 06:21] LABS: BUN/Creatinine Ratio 36.7; Bilirubin, Total 0.8 mg/dL (0.2-1.0); Total Protein 6.1 g/dL (6.4-8.2)
[2020-11-16] MEDS: amLODIPine BESYLATE 5 MG TAB PO SCH (10:00)
[2020-11-16] MEDS ORDERED: PANTOPRAZOLE 40 MG TAB PO SCH (10:00)
[2020-11-16] MEDS: ASCORBIC ACID 500 MG TAB PO SCH ×2 (10:18→21:02)
[2020-11-16] MEDS: ASPirin 81 mg TAB PO SCH (10:18)
[2020-11-16] MEDS: ZINC SULFATE 220mg CAP or TAB PO SCH (10:18)
[2020-11-16] MEDS: ENOXAPARIN SOD 40 MG/0.4 ML SYRINGE SC SCH (10:19)
[2020-11-16 16:30] LABS: INR 1.22 (0.9-1.15)
[2020-11-16] MEDS ORDERED: AZITHROMYCIN 500MG/ 250ML 250 ML IV SCH (21:00)
[2020-11-16] MEDS: ATORVASTATIN 20 MG TAB PO SCH (21:02)
[2020-11-17] VITALS (7 sets, daily range): BP systolic 97–132; BP diastolic 54–87
[2020-11-17] MEDS: FUROSEMIDE 20 MG/2 ML VIAL IV SCH ×2 (05:57→17:49)
[2020-11-17] MEDS: ACCU-CHEK COMFORT CURVE STRIP VI SCH ×4 (06:19→21:24)
[2020-11-17] MEDS: InsuLIN REG 1unit/0.01ml Soln (100units/ml) SC SCH ×4 (06:19→21:26)
[2020-11-17 10:04] LABS: Albumin 2.7 g/dL (3.4-5.0); Calcium 8.7 mg/dL (8.5-10.1); Potassium 3.3 mmol/L (3.5-5.1)
[2020-11-17 10:07] LABS: BUN/Creatinine Ratio 34.7; Bilirubin, Total 0.9 mg/dL (0.2-1.0); Total Protein 6.2 g/dL (6.4-8.2)
[2020-11-17] MEDS: amLODIPine BESYLATE 5 MG TAB PO SCH (10:08)
[2020-11-17] MEDS: ASPirin 81 mg TAB PO SCH (10:08)
[2020-11-17] MEDS: ZINC SULFATE 220mg CAP or TAB PO SCH (10:08)
[2020-11-17] MEDS: ASCORBIC ACID 500 MG TAB PO SCH ×2 (10:09→21:24)
[2020-11-17] MEDS: ENOXAPARIN SOD 40 MG/0.4 ML SYRINGE SC SCH (10:09)
[2020-11-17] MEDS: ATORVASTATIN 20 MG TAB PO SCH (21:24)
[2020-11-18 05:00] VITALS: BP 108/53
[2020-11-18] MEDS: FUROSEMIDE 20 MG/2 ML VIAL IV SCH (05:45)
[2020-11-18] MEDS: InsuLIN REG 1unit/0.01ml Soln (100units/ml) SC SCH (06:24)
[2020-11-18] MEDS: ACCU-CHEK COMFORT CURVE STRIP VI SCH (06:24)
[2020-11-18 08:20] VITALS: BP 140/57
[2020-11-18 09:00] VITALS: BP 140/57
== END 2020-11-18 09:45 | disposition home health service (06) | DRG 291 ==
LOC: ER 18:35 → TELE 21:17 → TELE-WESTW 22:16 → TELE 11-17 15:56 → TELE-WESTW 11-17 16:00
PROVIDERS: ADMIT Nurse Practitioner; ATTEND Internal Medicine
DX: I11.0 Hypertensive heart disease with heart failure (principal); J96.01 Acute respiratory failure with hypoxia; J91.8 Pleural effusion in other conditions classified elsewhere; I50.33 Acute on chronic diastolic (congestive) heart failure; E11.9 Type 2 diabetes mellitus without complications; E78.5 Hyperlipidemia, unspecified; Z20.822 Contact with and (suspected) exposure to COVID-19; Z88.6 Allergy status to analgesic agent; Z68.26 Body mass index [BMI] 26.0-26.9, adult; I35.0 Nonrheumatic aortic (valve) stenosis; Z82.49 Family history of ischemic heart disease and other diseases of the circulatory system; Z79.82 Long term (current) use of aspirin; Z90.09 Acquired absence of other part of head and neck
CPT/HCPCS: 36415; 71045; 80053; 82962; 83605; 83735; 83880; 84484; 85025; 85610; 87081; 87426; 93005; 96365; 96375; G0378; J1815

== ENCOUNTER 2022-02-12 02:13 | Inpatient (IN) | payer BC, OTHER ==
[~2022-02-12] VITALS: Ht 157.5 cm; Wt 66.0 kg
[2022-02-12 03:48] LABS: Basophils # (auto) 0 10 ^3/uL (0-0.2); Basophils % (auto) 0.3 % (0.0-2.0); Eosinophils # (auto) 0.1 10 ^3/uL (0-0.8); Eosinophils % (auto) 0.5 % (0.0-7.0); Hematocrit 39.1 % (36.0-46.0); Hemoglobin 12.8 g/dL (12.2-16.2); Lymphocytes # (auto) 1.7 10 ^3/uL (0.4-5.4); Lymphocytes % (auto) 16.3 % (10.0-50.0); Mean Corpuscular Hemoglobin 27.3 pg (28.0-32.0); Mean Corpuscular Hgb Conc. 32.8 g/dL (32.0-36.0); Mean Corpuscular Volume 83.2 fL (80.0-100.0); Monocytes # (auto) 0.7 10 ^3/uL (0-1.3); Monocytes % (auto) 6.7 % (0.0-12.0); Neutrophils # (auto) 7.9 10 ^3/uL (1.6-8.6); Neutrophils % (auto) 76.2 % (37.0-80.0); Red Cell Distribution Width 15.2 % (11.8-14.3); White Blood Cell 10.4 10^3/uL (4.4-10.8)
[2022-02-12 04:03] LABS: INR 1.1 (0.9-1.15); Partial Thromboplastin Time 26.2 sec (24.6-33.4)
[2022-02-12 04:06] LABS: Albumin 3.1 g/dL (3.4-5.0); Calcium 8.8 mg/dL (8.5-10.1); Magnesium 2.1 mg/dL (1.6-2.6); Potassium 3.9 mmol/L (3.5-5.1)
[2022-02-12 04:09] LABS: BUN/Creatinine Ratio 26.7; Total Protein 6.2 g/dL (6.4-8.2)
[2022-02-12] MEDS ORDERED: ASPirin 325 MG TAB PO ONE (07:45)
[2022-02-12] MEDS ORDERED: FUROSEMIDE 100 MG/10ML VIAL IV ONE (08:00)
[2022-02-12 09:43] LABS: Urine Bacteria NONE SEEN /hpf (None Seen); Urine Blood Negative /uL (Negative); Urine WBC 1 /hpf (0 - 5)
[2022-02-12] MEDS ORDERED: MORPHINE SULFATE INJ 2 MG/ml SYRG IV PRN (10:45)
[2022-02-12] MEDS ORDERED: ONDANSETRON HCL 4 MG/2 ML VIAL IV PRN (10:45)
[2022-02-12] MEDS ORDERED: NITROGLYCERIN 0.4 MG SL TAB SL PRN (10:45)
[2022-02-12] MEDS ORDERED: DEXTROSE (50%) 50ML SYRG IV PRN (10:45)
[2022-02-12] MEDS ORDERED: HYDROcodone-ACET 5/325MG TAB PO PRN (10:45)
[2022-02-12] MEDS: InsuLIN REG 1unit/0.01ml Soln (100units/ml) SC SCH ×3 (11:30→22:00)
[2022-02-12] MEDS: ACCU-CHEK COMFORT CURVE STRIP VI SCH ×3 (11:40→21:36)
[2022-02-12] MEDS: IPRATROPIUM BROM 0.5 MG/2.5ML INH SOL NEB SCH ×2 (12:00→19:20)
[2022-02-12] MEDS: ALBUTEROL SULF 2.5 MG/0.5ML(0.5%) NEB SOLN NEB SCH ×2 (12:00→19:20)
[2022-02-12 17:05] VITALS: BP 146/78
[2022-02-12] MEDS: FUROSEMIDE 40 MG/4 ML VIAL IV SCH (18:39)
[2022-02-12] MEDS ORDERED: LISI2.5T47 PO (19:07)
[2022-02-12] MEDS: POTASSIUM CHL 10 Meq TABLET PO SCH (21:36)
[2022-02-12 22:00] VITALS: BP 127/68
[2022-02-12] MEDS: BUDESONIDE (INHALATION) 0.5 MG/2 ML NEB NEB SCH (22:22)
[2022-02-13 05:00] VITALS: BP 141/63
[2022-02-13] MEDS: InsuLIN REG 1unit/0.01ml Soln (100units/ml) SC SCH ×2 (05:47→11:30)
[2022-02-13] MEDS: FUROSEMIDE 40 MG/4 ML VIAL IV SCH (05:47)
[2022-02-13] MEDS: ACCU-CHEK COMFORT CURVE STRIP VI SCH ×2 (05:47→12:15)
[2022-02-13 06:29] LABS: Potassium 4.9 mmol/L (3.5-5.1)
[2022-02-13 06:35] LABS: BUN/Creatinine Ratio 24.1; Calcium 9.1 mg/dL (8.5-10.1)
[2022-02-13] MEDS: IPRATROPIUM BROM 0.5 MG/2.5ML INH SOL NEB SCH ×2 (06:43→11:16)
[2022-02-13] MEDS: ALBUTEROL SULF 2.5 MG/0.5ML(0.5%) NEB SOLN NEB SCH ×2 (06:43→11:16)
[2022-02-13] MEDS: BUDESONIDE (INHALATION) 0.5 MG/2 ML NEB NEB SCH (06:43)
[2022-02-13] MEDS ORDERED: cefTRIAXone 1GM/50ML D5W 50 ML IV SCH (09:00)
[2022-02-13] MEDS ORDERED: ENOXAPARIN SOD 40 MG/0.4 ML SYRINGE SC SCH (10:00)
[2022-02-13] MEDS ORDERED: ASPirin-EC 81 mg tab PO SCH (10:00)
[2022-02-13] MEDS ORDERED: ATORVASTATIN 20 MG TAB PO SCH (10:00)
[2022-02-13] MEDS: POTASSIUM CHL 10 Meq TABLET PO SCH (10:27)
[2022-02-13] MEDS ORDERED: FURO40TA4 PO (15:37)
[2022-02-13] MEDS ORDERED: ALBU108A5 IN (15:37)
[2022-02-13 17:22] VITALS: BP 128/73
== END 2022-02-13 17:56 | disposition home or self-care (01) | DRG 291 ==
LOC: EDUNIT# 02:13 → ER 02:13 → EDBD 02:13 → TELE 10:39 → TELE-CENTR 17:45
PROVIDERS: ADMIT Hospitalist; ATTEND Hospitalist
DX: I11.0 Hypertensive heart disease with heart failure (principal); I50.23 Acute on chronic systolic (congestive) heart failure; J44.1 Chronic obstructive pulmonary disease with (acute) exacerbation; I42.9 Cardiomyopathy, unspecified; E11.9 Type 2 diabetes mellitus without complications; I49.3 Ventricular premature depolarization; E78.5 Hyperlipidemia, unspecified; Z95.2 Presence of prosthetic heart valve; Z88.5 Allergy status to narcotic agent
CPT/HCPCS: 36415; 71045; 73560; 80048; 80053; 81001; 82962; 83735; 83880; 84484; 85025; 85379; 85610; 85730; 87426; 93005; 93306; 93970; 94640; 96374; 99291; G0378; J0696

== ENCOUNTER 2023-05-22 08:30 | Emergency (ER) | payer OTHER ==
[~2023-05-22] VITALS: Ht 157.5 cm; Wt 68.2 kg
[~2023-05-22 08:30] MED LIST changes: +ALBU108A5 IN; -ASCO500T11 PO; -CIPR500T4 PO; +LISI2.5T47 PO
[2023-05-22 09:00] VITALS: PULSE 67; RESP 12; O2SAT 96
[2023-05-22 09:22] LABS: Basophils # (auto) 0 10 ^3/uL (0-0.2); Basophils % (auto) 0.5 % (0.0-2.0); Eosinophils # (auto) 0.3 10 ^3/uL (0-0.8); Eosinophils % (auto) 3.6 % (0.0-7.0); Hematocrit 36.5 % (36.0-46.0); Hemoglobin 11.8 g/dL (12.2-16.2); Lymphocytes # (auto) 1.2 10 ^3/uL (0.4-5.4); Lymphocytes % (auto) 15.3 % (10.0-50.0); Mean Corpuscular Hemoglobin 27.5 pg (28.0-32.0); Mean Corpuscular Hgb Conc. 32.4 g/dL (32.0-36.0); Mean Corpuscular Volume 84.8 fL (80.0-100.0); Monocytes # (auto) 0.9 10 ^3/uL (0-1.3); Monocytes % (auto) 10.9 % (0.0-12.0); Neutrophils # (auto) 5.5 10 ^3/uL (1.6-8.6); Neutrophils % (auto) 69.7 % (37.0-80.0); Red Cell Distribution Width 14.5 % (11.8-14.3); White Blood Cell 7.9 10^3/uL (4.4-10.8)
[2023-05-22 09:31] LABS: Anion Gap 6 (5-15); Calcium 9.9 mg/dL (8.5-10.1); Carbon Dioxide 27 mmol/L (20-30); Chloride 106 mmol/L (98-107); Potassium 4.9 mmol/L (3.5-5.1); Sodium 139 mmol/L (136-145)
[2023-05-22 09:37] LABS: BUN/Creatinine Ratio 36.8 (10.0-20.0); Blood Urea Nitrogen 43 mg/dL (9-23); Glucose 156 mg/dL (74-106)
[2023-05-22 10:41] LABS: Urine Bacteria NONE SEEN /hpf (None Seen); Urine Blood Negative /uL (Negative); Urine Clarity Clear (Clear); Urine Protein, UAD Negative (Negative); Urine Specific Gravity 1.009 (1.001-1.035); Urine Urobilinogen Normal (Negative); Urine WBC 1 /hpf (0 - 5); Urine pH 6.5 (5.0-8.0)
[2023-05-22 10:48] LABS: Urine Color Straw (Yellow)
[2023-05-22] MEDS ORDERED: SODIUM CHLORIDE 0.9% 500 ML IV ONE (11:15)
[2023-05-22] MEDS ORDERED: SODIUM CHLORIDE 0.9% 1,000 ML IV ONE (11:15)
[2023-05-22 14:22] VITALS: TEMP 97.4
[2023-05-22] MEDS ORDERED: cloNIDine HCL 0.1 MG TAB PO ONE (14:30)
[2023-05-22 16:26] VITALS: BP 160/56; PULSE 72; RESP 16; O2SAT 98
== END 2023-05-22 16:30 | disposition home or self-care (01) ==
LOC: ER 08:30 → EDBD 08:30 → ER 16:25
DX: R53.1 Weakness (principal); E86.0 Dehydration; I25.10 Atherosclerotic heart disease of native coronary artery without angina pectoris; E11.21 Type 2 diabetes mellitus with diabetic nephropathy; I13.0 Hypertensive heart and chronic kidney disease with heart failure and stage 1 through stage 4 chronic kidney disease, or unspecified chronic kidney disease; E11.22 Type 2 diabetes mellitus with diabetic chronic kidney disease; N18.30 Chronic kidney disease, stage 3 unspecified; I50.9 Heart failure, unspecified; J44.9 Chronic obstructive pulmonary disease, unspecified; E78.5 Hyperlipidemia, unspecified; Z90.49 Acquired absence of other specified parts of digestive tract; Z90.710 Acquired absence of both cervix and uterus
CPT/HCPCS: 36415; 71045; 80048; 81001; 83735; 84484; 85025; 93005; 99285; J7040